=== PATIENT | female | born 1995 | race Two or more races ===

== ENCOUNTER 2022-10-24 05:10 | Day surgery (SDC) | payer OTHER ==
[~2022-10-24 05:10] MED LIST: IRON PO
== END 2022-10-24 12:00 | disposition home or self-care (01) ==
LOC: CIR.AMB 05:10
PROVIDERS: ATTEND Obstetrics & Gynecology Gynecology
DX: N93.8 Other specified abnormal uterine and vaginal bleeding (principal); R10.2 Pelvic and perineal pain; N91.1 Secondary amenorrhea; F17.210 Nicotine dependence, cigarettes, uncomplicated; D64.9 Anemia, unspecified; Z20.822 Contact with and (suspected) exposure to COVID-19